=== PATIENT | male | born 1975 | race Caucasian/White ===

== ENCOUNTER 2016-08-03 05:35 | Inpatient (IN) | payer BC ==
[2016-07-19 12:38] VITALS: BMI 25.0
--- NOTE | 2016-07-19 13:08 | PAT Medication Instructions ---
Service Date Jul 19, 2016. Current Home Medication List Escitalopram Oxalate (Lexapro), 20 MG PO QAM Levothyroxine Sodium (Levothyroxine Sodium), 1 TAB PO QAM Omeprazole (Prilosec), 20 MG PO QAM Medication Instructions For Your Scheduled Surgery - Take the following medications the morning of surgery with a sip of water OTHERWISE NOTHING TO EAT OR DRINK AFTER MIDNIGHT: Escitalopram Oxalate (Lexapro), 20 MG PO QAM Levothyroxine Sodium (Levothyroxine Sodium), 1 TAB PO QAM Omeprazole (Prilosec), 20 MG PO QAM If you have any questions please call us at [phone] or [phone] or [phone]
--- NOTE | 2016-07-19 13:39 | DIAGNOSTIC IMAGING REPORT ---
CHEST PREADMISSION(PA/LAT) CLINICAL HISTORY: PAT preoperative evaluation COMPARISON STUDY: No previous studies for comparison. FINDINGS: The bones soft tissues and hemidiaphragms are normal. The cardiomediastinal silhouette is normal. The lungs are clear. The pulmonary vasculature is normal. IMPRESSION: Negative chest. Electronically signed by: Jesús Perez M.D. 07/19/2016 1:38 PM Dictated Date/Time: 07/19/2016 1:38 PM
[2016-07-19 14:18] LABS: BASO % 0.6 %; BASO ABS # 0.04 K/uL (0-0.2); COMPLETE YES; EOS % 1.7 %; HEMATOCRIT 43.7 % (42-52); IG% 0.5 %; LYMPH ABS # 1.54 K/uL (1.2-3.4); MEAN CELL VOLUME 88.3 fL (80-100); MEAN CORPUSCULAR HEMOGLOBIN 32.1 pg (25-34); MEAN CORPUSCULAR HGB CONC 36.4 g/dl (32-36); MEAN PLATELET VOLUME 10.5 fL (7.4-10.4); MONO % 11.1 %; NEUT % 62.1 %; PLATELET COUNT 229 K/uL (130-400); RED BLOOD COUNT 4.95 M/uL (4.7-6.1); WHITE BLOOD COUNT 6.41 K/uL (4.8-10.8)
[2016-07-19 14:38] LABS: BUN/CREATININE RATIO 14.2 (10-20); CALCIUM 9.2 mg/dl (8.5-10.1); CREATININE 1.1 mg/dl (0.60-1.40); POTASSIUM 3.7 mmol/L (3.5-5.1)
[2016-07-19 14:44] LABS: URINE APPEARANCE CLEAR (CLEAR); URINE BILIRUBIN NEG (NEG); URINE COLOR YELLOW; URINE NITRITE NEG (NEG); URINE SPECIFIC GRAVITY 1.013 (1.000-1.030); UROBILINOGEN NEG (NEG)
[2016-07-19 14:49] LABS: MANUAL MICROSCOPIC REQUIRED? NO; REVIEW REQ? NO
--- NOTE | 2016-08-01 10:07 | HISTORY & PHYSICAL EXAMINATION ---
DATE OF ADMISSION: 08/03/2016 HISTORY OF PRESENT ILLNESS: The patient presents with complaint of neck pain radiating down the right upper extremity to his stomach. He has trialed physical therapy as well as injections with Dr. Jernigan. He is having a difficult time performing normal activities. Also, struggling with performing any type of exercise due to the above-mentioned complaints. 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 Denies paresthesias, numbness. Denies bowel or bladder dysfunction. PAST MEDICAL HISTORY: Significant for none. PAST SURGICAL HISTORY: Not listed. ALLERGIES: Anti-inflammatories. MEDICATIONS: He is on Lexapro 20 mg a day, Prilosec over the counter 20 mg a day, Synthroid 100 mcg a day, and tramadol 50 mg p.r.n. SOCIAL HISTORY: He works for the residential. Denies alcohol. Denies tobacco use. FAMILY HISTORY: Noncontributory. REVIEW OF SYSTEMS: Significant for neck and right upper extremity pain. PHYSICAL EXAMINATION: HEAD, EYES, EARS, NOSE, AND THROAT: Speech appropriate. CARDIOPULMONARY: No gross abnormalities. ABDOMEN: Soft and nontender. GENITOURINARY: Deferred. NEUROLOGIC: Cranial nerves II-XII grossly intact. MUSCULOSKELETAL: The patient has a positive Spurling's to the right. Negative on the left. No focal atrophy of the upper extremities. Gait is stable. Strength is otherwise intact bilateral upper extremities. ASSESSMENT: Cervical radiculopathy, neural foraminal stenosis C3-C4 and C4-5 on the right. PLAN: At this point in time, he has trialed and failed conservative therapy and may pursue surgical intervention. Surgery would require ACDF at C3-4, C4-5. Risks, benefits, pros, cons, and alternatives were outlined in detail. The patient would like to proceed with the above-mentioned surgical planning.
[~2016-08-03] VITALS: Ht 175.3 cm; Wt 78.0 kg
[2016-08-03] VITALS (16 sets, daily range): BP systolic 109–142; BP diastolic 64–85; PULSE 62–99; TEMP 36.3–36.8; O2SAT 92–98; Ht 175.3 cm; Wt 78.0 kg
[~2016-08-03 05:35] MED LIST: ESCI1TAB10 PO; LEVO125T4 PO; PRLSR20 PO
[2016-08-03] MEDS ORDERED: CEFAZOLIN 1000MG/55 ML D5W IV SCH (06:00)
[2016-08-03] MEDS ORDERED: LACTATED RINGER'S 1000ML 1,000 ML IV SCH (06:00)
[2016-08-03] MEDS ORDERED: PROPOFOL IV EMULSION 10 MG/ML 20 ML VIAL IV ONE (06:30)
[2016-08-03] MEDS ORDERED: ONDANSETRON INJ 2 MG/ML 2 ML VIAL ONE (06:30)
[2016-08-03] MEDS ORDERED: FENTANYL CITRATE INJ 50 MCG/1 ML 2 ML VIAL ONE ×2 (06:30→08:31)
[2016-08-03] MEDS ORDERED: LIDOCAINE HCL 2% 2 ML VIAL (20MG/ML) ONE (06:30)
[2016-08-03] MEDS ORDERED: DEXAMETHASONE SOD INJ 4 MG/ML VIAL ONE (06:30)
[2016-08-03] MEDS ORDERED: MIDAZOLAM HCL 1 MG/ML 2ML VIAL ONE ×2 (06:30→10:33)
[2016-08-03] MEDS ORDERED: ROCURONIUM BROMIDE 10 MG/ML 5 ML VIAL ONE ×2 (06:30→07:59)
[2016-08-03] MEDS ORDERED: SODIUM CHLORIDE 0.9% INJ 10 ML VIAL ONE (06:42)
[2016-08-03] MEDS ORDERED: CEFAZOLIN IV 2,000 MG/60 ML D5W IV ONE (06:58)
[2016-08-03] MEDS ORDERED: BACITRACIN 50000 UNIT VIAL ONE (06:59)
[2016-08-03] MEDS ORDERED: PHENYLEPHRINE 100MCG/ML 5ML SYR IV PRN (07:15)
[2016-08-03] MEDS ORDERED: ATROPINE SULFATE 0.1 MG/ML 5ML SYR IV PRN (07:15)
[2016-08-03] MEDS ORDERED: EpHEDrine SULFATE INJ 50 MG/ML AMP IV PRN (07:15)
[2016-08-03] MEDS ORDERED: ONDANSETRON INJ 2 MG/ML 2 ML VIAL IV PRN ×2 (07:15→09:45)
--- NOTE | 2016-08-03 07:28 | History & Physical Bridge Note ---
H&P Re-Evaluation Bridge Note: I have examined the patient, reviewed the History & Physical and in the interval since the performance of the History & Physical I have noted the following changes of clinical significance: No changes noted
[2016-08-03] MEDS ORDERED: HYDROmorphone INJ 2 MG/ML SYR/VIAL ONE (08:06)
[2016-08-03] MEDS ORDERED: FLOSEAL HEMOSTATIC MATRIX 5ML TOP ONE (09:31)
--- NOTE | 2016-08-03 09:33 | [facility] Post Operative Brief Note ---
Immediate Operative Summary Operative Date Aug 03, 2016. Pre-Operative Diagnosis Cervical radiculopathy, neural foramilnal stenosis C3-C4 and C4-C5 on the right. Post-Operative Diagnosis Same as preoperative diagnosis Procedure(s) Performed C3-C4, C4-C5 Anterior Cervical Discectomy and Fusion; Removal of Intervertebral Disc/Decompression Surgeon Dr Obrien Client Relations Associate Surgeon(s) DIAMOND Estimated Blood Loss 15 Findings stenosis Specimens 0
[2016-08-03] MEDS ORDERED: DO NOT ADMINISTER PNEUMOCOCCAL VACCINE PRN ×2 (09:45)
[2016-08-03] MEDS ORDERED: RACEPINEPHRINE 2.25% NEBU SOLN 0.5 ML VIAL INH PRN (09:45)
[2016-08-03] MEDS ORDERED: ACETAMINOPHEN IV 1,000 MG in EMPTY BAG 0 ML IV PRN (09:45)
[2016-08-03] MEDS ORDERED: MAGNESIUM HYDROXIDE SUSP 30 ML UDC PO PRN (09:45)
[2016-08-03] MEDS ORDERED: LORAZEPAM 0.5 MG TAB PO PRN (09:45)
[2016-08-03] MEDS ORDERED: NALOXONE HCL 0.4 MG/1 ML VIAL/CARP IV PRN (09:45)
[2016-08-03] MEDS ORDERED: DO NOT ADMINISTER FLU VACCINE PRN ×3 (09:45)
[2016-08-03] MEDS ORDERED: DEXAMETHASONE INJ 8 MG in SYRINGE 0 ML IV PRN (09:45)
[2016-08-03] MEDS ORDERED: LORAZEPAM INJ 0.5 MG in SYRINGE 0.75 ML IV PRN (09:45)
[2016-08-03] MEDS ORDERED: DiphenhydrAMINE HCL 50 MG/ML VIAL IV PRN (09:45)
[2016-08-03] MEDS ORDERED: GLYCOPYRROLATE INJ 0.2 MG/ML VIAL ONE (09:50)
[2016-08-03] MEDS ORDERED: NEOSTIGMINE METHYLSULFATE 5 MG/5 ML SYR ONE (09:50)
[2016-08-03] MEDS: HYDROmorphone INJ 2 MG/ML SYR/VIAL IV PRN ×6 (09:50→10:30)
--- NOTE | 2016-08-03 09:56 | DIAGNOSTIC IMAGING REPORT ---
Cervical SPINE, INTRAOPERATIVE FLUOROSCOPY HISTORY: ACDF C3-C5. FLUOROSCOPY TIME: 9 seconds. FINDINGS: Intraoperative fluoroscopy was provided for the cervical spine. 2 fluoroscopic spot images were obtained. There is anterior cervical discectomy and fusion from C3 through C5. The hardware appears intact. IMPRESSION: Fluoroscopy provided for a C3-C5 ACDF.. Electronically signed by: Sukhjinder Nettles M.D. 08/03/2016 9:55 AM Dictated Date/Time: 08/03/2016 9:54 AM
--- NOTE | 2016-08-03 10:01 | OPERATIVE REPORT ---
DATE OF OPERATION: 08/03/2016 PREOPERATIVE DIAGNOSES: Cervical spondylosis, herniated nucleus pulposus with radiculopathy. POSTOPERATIVE DIAGNOSES: Same. PROCEDURE PERFORMED: 1. Anterior cervical discectomy, bilateral foraminotomies C3-C4, C4-5. 2. Anterior cervical arthrodesis C3-C4, C4-5. 3. Placement of cortical autograft filled with Progenix 7 mm in height at C3-C4, C4-C5. 4. Application of Louise plate and screws from C3-C4, C4-C5. SURGEON: Dr. Erich Obrien. RATE AND COST ANALYST: Brenna Hammond PA-C. Due to the complex nature of the procedure, the entire surgery was performed with the medical receptionist assistant of BOBBI Amaya.? The catering assistant, under direct supervision, was involved in the actual performance of all aspects of the surgical procedure including hemostasis, tissue retraction and incision, instrument management, patient positioning, and wound closure. ANESTHESIA: General. DISPOSITION: The patient awakened and taken to PACU in stable condition. HISTORY OF PATIENT'S PROBLEMS: This is a 40-year-old male who presents with above-mentioned diagnosis. After failing an extensive course of nonoperative care, elected to undergo the above-mentioned procedure. Risks, benefits, pros, cons, and alternatives were outlined in detail preoperatively. DESCRIPTION OF PROCEDURE: The patient was met with preoperatively, case discussed and all questions were addressed. At that point the patient was taken back to operative suite and after undergoing successful general intubation by the department of anesthesia was placed in the supine position on Drew table with head in Scott head of drama. All bony prominences were well padded and the eyes were inspected to ensure there was no external pressure placed upon them. At this point the anterior cervical spine was prepped and draped in normal sterile fashion. With the assistance of fluoroscopy, we identified the C4 vertebral body and a transverse incision was placed along the right anterior aspect of the cervical spine overlying this region. Sharp dissection with the assistance of bipolar electrocautery performed down to and exposing the anterior cervical spine from C3-C5. A self-retaining retractor was placed. I then performed a complete discectomy of C3-C4 out to the uncovertebral joints bilaterally. [place] distracting pins were utilized to assist us in our visualization. After removal of all posterior annular fibers, disc fragments and bilateral foraminotomies performed, endplates were burred to subcortical bleeding bone. A 7 mm cortical autograft filled with Progenix tapped into position. Distracting apparatus was removed and we proceeded to see C4-C5 and again a complete discectomy was performed out to the uncovertebral joints bilaterally. [place] distracting pins again utilized to assist us in our visualization. I removed all posterior annular fibers, longitudinal ligament and bilateral foraminotomies performed, endplates burred to subcortical bleeding bone and a 7 mm cortical autograft filled with Progenix tapped in position. Distractor apparatus was removed. All anterior osteophytes burred to a smooth cortical surface and a Louise plate and screws applied with the assistance of fluoroscopy. The incision was then copiously irrigated, explored to ensure there was no damage to surrounding structures or remaining bleeding and a 10 round ANTHONY drain inserted. It was then closed with 2-0 Vicryl in the fascia, 4-0 Monocryl for final closure. Steri-Strips and sterile dressing placed. The patient was awakened and taken to PACU in stable condition. I attest to the content of the Intraoperative Record and any orders documented therein. Any exceptio ns are noted below.
--- NOTE | 2016-08-03 11:32 | Anesthesiology Progress Note ---
Anesthesia Post Op Note Date & Time Aug 03, 2016 at 11:33 Vital Signs Pain Intensity: 5 Vital Signs Past 12 Hours Date Time Temp Pulse Resp B/P Pulse Ox O2 Delivery O2 Flow Rate FiO2 08/03/16 10:57 36.8 08/03/16 10:54 137/78 08/03/16 10:52 92 12 94 08/03/16 10:52 93 12 08/03/16 10:49 136/82 08/03/16 10:47 94 12 94 08/03/16 10:47 94 12 08/03/16 10:44 162/91 08/03/16 10:42 96 16 92 08/03/16 10:42 95 16 08/03/16 10:41 82 16 92 08/03/16 10:41 80 08/03/16 10:39 138/78 08/03/16 10:36 90 16 08/03/16 10:36 87 16 94 08/03/16 10:34 143/84 08/03/16 10:31 92 14 92 08/03/16 10:31 93 14 08/03/16 10:29 132/89 08/03/16 10:26 87 13 93 08/03/16 10:26 89 13 08/03/16 10:24 158/92 08/03/16 10:21 95 16 08/03/16 10:21 95 16 92 08/03/16 10:20 36.6 08/03/16 10:19 142/99 08/03/16 10:15 99 15 97 08/03/16 10:15 99 15 08/03/16 10:14 161/92 08/03/16 10:10 85 19 92 08/03/16 10:10 87 19 08/03/16 10:09 166/99 08/03/16 10:05 93 14 08/03/16 10:05 91 14 96 08/03/16 10:04 154/105 08/03/16 10:00 Nasal Cannula 4 08/03/16 10:00 90 12 08/03/16 10:00 89 12 94 08/03/16 09:59 168/104 08/03/16 09:55 92 10 166/99 91 08/03/16 09:55 92 10 08/03/16 09:45 36.6 94 16 166/99 95 Mask 10 08/03/16 06:05 36.7 70 20 133/80 96 Room Air Notes Mental Status: alert / awake / arousable, participated in evaluation Pt Amnestic to Procedure: Yes Nausea / Vomiting: adequately controlled Pain: adequately controlled Airway Patency, RR, SpO2: stable & adequate BP & HR: stable & adequate Hydration State: stable & adequate Anesthetic Complications: no major complications apparent
[2016-08-03] MEDS ORDERED: HYDROmorphone INJ 1 MG/ML SYR IV PRN (12:00)
[2016-08-03] MEDS: LACTATED RINGER'S 1000ML 1,000 ML IV SCH (12:38)
[2016-08-03] MEDS ORDERED: RXC5 PO (13:12)
--- NOTE | 2016-08-03 13:12 | Discharge Instructions ---
Discharge Instructions Admission Reason for Admission: Spinal Stenosis Discharge Discharge Diagnosis / Problem: stenosis Discharge Goals Goal(s): Improve function Activity Recommendations Activity Limitations: per Instructions/Follow-up section ACTIVITY RECOMMENDATIONS: SELF CARE INSTRUCTIONS AFTER CERVICAL FUSIONS 1. No smoking. Smoking drastically decreases the chance of a solid fusion. 2. No bending, lifting more than 5 pounds, or twisting (roll like a log when turning in bed). 3. You may shower 3 days after surgery. Thoroughly dry wound. Do not soak in the tub. 4. Cervical collar: Must be worn at all times including sleeping. You may remove the brace only to bath, eat and if you are sitting in a recliner. 5. Please walk as much as you can for exercise. Gradually increase the distance that you walk as your endurance increases. SPECIAL CARE INSTRUCTIONS: VERY IMPORTANT TO READ AND REVIEW A. Do not take any anti-inflammatory medications (i.e. Indocin, Advil, Aspirin, Naprosyn, Aleve, Motrin, etc.) as these may inhibit the chance of a solid fusion. Tylenol is okay to take. B. Your surgical incision has been closed with a cosmetic suture under the skin that will dissolve in about 6 weeks. In 14 days, you can use a pair of clean scissors and cut the suture that is left outside of the skin at the ends of your incision. C. Complications are uncommon, but please contact us if you have any signs or symptoms of: 1. wound infection (fever higher than 102.5 degrees F, redness, separation of wound, drainage, or increasing pain from the incision) 2. blood clots in legs (pain, swelling, redness and warmth in legs) 3. urinary tract infection (fever higher than 102.5 degrees, burning upon urination or increased frequency of urination) 4. nerve problems (inability to walk on your toes or heels, numbness, loss of bowel or bladder control) 5. any other symptoms that concern you. D. Please call the office at if you have any concerns or questions about your operation or recovery. MANAGING PAIN AFTER SPINAL SURGERY 1. Narcotic medication is intended for short-term use and will be provided for surgical pain. Surgical pain usually lasts for a period of 4-6 weeks. Narcotic medication includes Percocet, Vicodin, Darvocet, Tylenol #3 or Lortab. 2. Longer-term pain is more appropriately treated with non-narcotic medication such as Tylenol ES. 3. Muscle spasm is not appropriately treated with narcotics. Muscle relaxers such as Soma, Flexeril or Skelaxin can be used along with Tylenol ES. 4. Remember that we all live with some "aches and pains". This is not unusual or uncommon after an injury or as we get older. 5. We will provide appropriate medication within the normal guidelines of their prescribed use. We will also be very cautious and aware of potential abuse and extended duration of patients' medication needs. 6. Please allow 2-3 days to process refills. Prescriptions will not be mailed but must be picked up at the office. FOLLOW UP VISIT: Keep your scheduled follow-up appointment. Any questions, please call the office at . . Current Hospital Diet Patient's current hospital diet: Clear Liquid Diet Discharge Diet Recommended Diet: Regular Diet Procedures Procedures Performed: C3-C4, C4-C5 Anterior Cervical Discectomy and Fusion; Removal of Intervertebral Disc/Decompression Pending Studies Studies pending at discharge: no Medical Emergencies . Who to Call and When: Medical Emergencies: If at any time you feel your situation is an emergency, please call 911 immediately. . Non-Emergent Contact Non-Emergency issues call your: Primary Care Provider . "Provider Documentation" section prepared by Erich Obrien. VTE Core Measure Inpt VTE Proph given/why not?: Patrice Barajas, [facility]
[2016-08-03] MEDS ORDERED: INFLUENZA ADMINISTRATION CHARGE ONE (14:00)
[2016-08-03] MEDS ORDERED: INFLUENZA VIRUS QUAD VACCINE 0.5 ML SYR IM. ONE (14:00)
[2016-08-03] MEDS ORDERED: SCOPOLAMINE 1.5 MG TDSY TD SCH (14:00)
[2016-08-03] MEDS: DEXAMETHASONE INJ 6 MG in SYRINGE 0 ML IV SCH ×2 (14:34→22:01)
[2016-08-03] MEDS: HYDROmorphone INJ 0.5 MG/0.5 ML SYR IV PRN (14:44)
[2016-08-03] MEDS: CEFAZOLIN IV 2,000 MG in DEXTROSE 5% 50ML 50 ML IV SCH (16:19)
[2016-08-03] MEDS: CHECK SCOPOLAMINE PATCH PLACEMENT SCH (16:20)
[2016-08-03] MEDS ORDERED: NURSING VERBAL MED ORDER ONE (18:15)
[2016-08-03] MEDS ORDERED: PROMETHAZINE HCL INJ 25 MG in SODIUM CHLORIDE 0.9% 50ML 50 ML IV PRN (18:30)
[2016-08-03] MEDS: ACETAMINOPHEN IV 1,000 MG in EMPTY BAG 0 ML IV SCH (20:17)
[2016-08-03] MEDS: DOCUSATE SODIUM 100 MG CAP PO SCH (22:01)
[2016-08-04] VITALS (9 sets, daily range): BP systolic 119–136; BP diastolic 67–86; PULSE 71–79; TEMP 36.7–37.5; O2SAT 95–100
[2016-08-04] MEDS: CEFAZOLIN IV 2,000 MG in DEXTROSE 5% 50ML 50 ML IV SCH ×2 (00:10→07:54)
[2016-08-04] MEDS: LACTATED RINGER'S 1000ML 1,000 ML IV SCH (00:10)
[2016-08-04] MEDS: CHECK SCOPOLAMINE PATCH PLACEMENT SCH ×2 (00:10→07:57)
[2016-08-04] MEDS: OXYCODONE HCL IR 5 MG TAB (IMMEDIATE RELEASE) PO PRN ×3 (02:04→08:14)
[2016-08-04] MEDS: ACETAMINOPHEN IV 1,000 MG in EMPTY BAG 0 ML IV SCH (04:07)
[2016-08-04] MEDS: DEXAMETHASONE INJ 6 MG in SYRINGE 0 ML IV SCH (05:57)
[2016-08-04] MEDS ORDERED: LEVOTHYROXINE 125 MCG TAB PO SCH (06:00)
[2016-08-04] MEDS ORDERED: COUGH DROP (SUGAR FREE) LOZ 24 LOZ/1 BOX ONE (08:09)
--- NOTE | 2016-08-04 08:11 | Anesthesiology Progress Note ---
Anesthesia Post Op Note Date & Time Aug 04, 2016 at 08:11 Vital Signs Vital Signs Past 12 Hours Date Time Temp Pulse Resp B/P Pulse Ox O2 Delivery O2 Flow Rate FiO2 08/04/16 08:00 37.5 71 18 133/79 98 Room Air 08/04/16 06:59 36.8 78 17 119/71 96 Room Air 08/04/16 06:00 36.7 74 16 128/73 97 Room Air 08/04/16 04:05 74 16 96 Nasal Cannula 3.0 08/04/16 04:03 36.8 79 16 133/79 96 Nasal Cannula 2.0 Humidified Oxygen 08/04/16 01:59 36.7 72 16 120/67 95 Nasal Cannula 2.0 Humidified Oxygen 08/04/16 00:00 Nasal Cannula 2.0 Humidified Oxygen 08/03/16 23:58 72 14 94 Nasal Cannula 3.0 08/03/16 23:58 36.5 69 16 109/64 96 Nasal Cannula 2.0 Humidified Oxygen 08/03/16 21:55 36.3 74 16 121/75 95 Nasal Cannula 3.0 Humidified Air Notes Mental Status: alert / awake / arousable, participated in evaluation Pt Amnestic to Procedure: Yes Nausea / Vomiting: adequately controlled Pain: adequately controlled Airway Patency, RR, SpO2: stable & adequate BP & HR: stable & adequate Hydration State: stable & adequate Anesthetic Complications: no major complications apparent
[2016-08-04] MEDS: DOCUSATE SODIUM 100 MG CAP PO SCH (08:14)
[2016-08-04] MEDS ORDERED: COUGH DROP (SUGAR FREE) LOZ 24 LOZ/1 BOX PO PRN (08:15)
[2016-08-04] MEDS ORDERED: NURSING DECISION MEDICATION ORDER SCH (08:15)
[2016-08-04] MEDS ORDERED: ESCITALOPRAM OXALATE 20 MG TAB PO SCH (09:00)
[2016-08-04] MEDS ORDERED: PANTOprazole SOD 40 MG TAB PO SCH (09:00)
[2016-08-04] MEDS: HYDROmorphone INJ 0.5 MG/0.5 ML SYR IV PRN (09:51)
--- NOTE | 2016-08-04 14:57 | DISCHARGE SUMMARY ---
PRINCIPAL DIAGNOSIS: Cervical spinal stenosis with myeloradiculopathy. HOSPITAL COURSE FOLLOWS: On 08/02/2016 patient underwent anterior cervical discectomy and fusion, tolerated this well and taken to the orthopedic floor postoperatively. Postop day #1, he was swallowing well, no hoarseness. Arm symptoms markedly improved, subsequently discharged home. Discharge orders and instructions found on the chart for further review.
[2016-08-05] MEDS ORDERED: BISACODYL 10 MG SUPP PR PRN (06:00)
[2016-08-05] MEDS ORDERED: BISACODYL 5 MG TABEC PO PRN (06:00)
[2016-08-06] MEDS ORDERED: POLYETHYLENE (MIRALAX) 17 GM PACK PO SCH (09:00)
== END 2016-08-04 11:25 | disposition home or self-care (01) | DRG 472 ==
LOC: ENRESERVDT → ENRESERVTM → C.ACU 05:35 → C.3E 07:00
PROVIDERS: ADMIT Orthopaedic Surgery Orthopaedic Surgery of the Spine; ATTEND Orthopaedic Surgery Orthopaedic Surgery of the Spine
PROC: 0RT30ZZ Resection of Cervical Vertebral Disc, Open Approach (ICD-10-PCS; principal; 2016-08-03 07:45)
PROC: 0RG2070 Fusion of 2 or more Cervical Vertebral Joints with Autologous Tissue Substitute, Anterior Approach, Anterior Column, Open Approach (ICD-10-PCS; principal; 2016-08-03 07:45)
DX: M48.02 Spinal stenosis, cervical region (principal); M47.12 Other spondylosis with myelopathy, cervical region; M50.00 Cervical disc disorder with myelopathy, unspecified cervical region